=== PATIENT | female | born 1945 | race Caucasian/White ===

== ENCOUNTER 2016-05-12 10:32 | Inpatient (IN) | payer OTHER, MEDICARE ==
[~2016-05-12] VITALS: Ht 160 cm; Wt 97.9 kg
[~2016-05-12 10:32] MED LIST: ATENOLOL100 MG PO; CALCIUM + D SO1 EACH PO; IRON325 MG PO; KEFLEX500 MG PO; LISINOPRIL10 MG PO; PRAVASTATIN SOD20 MG PO; PRESERVISION T1 EACH PO; TYLENOL EXTRA500 MG PO; VITAMIN D2000 UNI1 PO
[2016-05-12 12:20] VITALS: BP 128/68
[2016-05-12 12:22] LABS: POINT-OF-CARE METER ID UU14174212
[2016-05-12 18:05] VITALS: BP 119/65
[2016-05-12 18:15] VITALS: BP 119/65
[2016-05-12 19:34] VITALS: BP 112/60
[2016-05-12 23:43] VITALS: BP 108/64
[2016-05-13 05:10] VITALS: BP 111/63
[2016-05-13 08:28] LABS: HEMATOCRIT 35.8 % (36.0-46.0); MCV 99.4 FL (83-99)
[2016-05-13 08:33] VITALS: BP 103/62
[2016-05-13 08:52] LABS: ANION GAP 6 MEQ/L (2-14); CHLORIDE 105 MEQ/L (99-109); GFR ESTIMATE (CALCULATED) 47 mL/min/; GLUCOSE 88 mg/dL (70-99); POTASSIUM 4.8 MEQ/L (3.7-5.4); SAMPLE HEMOLYSIS CHECK 0; SAMPLE ICTERIC CHECK 0; SAMPLE LIPEMIA CHECK 0; SODIUM 139 MEQ/L (136-147); UREA NITROGEN (BUN) 28 mg/dL (9-23)
[2016-05-13] MEDS ORDERED: OXYCODONE HCL5 MG PO (09:36)
[2016-05-13] MEDS ORDERED: CELECOXIB200 MG PO (09:36)
[2016-05-13] MEDS ORDERED: XARELTO10 MG PO (09:36)
== END 2016-05-13 14:50 | disposition home or self-care (01) | DRG 470 ==
LOC: 2SOUTH 10:32 → 3EAST 18:04
PROVIDERS: Orthopaedic Surgery
PROC: 0SRC0J9 Replacement of Right Knee Joint with Synthetic Substitute, Cemented, Open Approach (ICD-10-PCS; principal; 2016-05-12)
DX: M17.11 Unilateral primary osteoarthritis, right knee (principal); I10 Essential (primary) hypertension; E78.5 Hyperlipidemia, unspecified; Z68.37 Body mass index [BMI] 37.0-37.9, adult
CPT/HCPCS: 80048; 82948; 85014; 85018; 97530 GP; C1713; J0131; J0690; J1885; J2250; J2405; J2795; J7050; L1820

== ENCOUNTER 2017-10-04 21:22 | Inpatient (IN) | payer OTHER, MEDICARE ==
[~2017-10-04] VITALS: Ht 162.6 cm; Wt 101.5 kg
[~2017-10-04 21:22] MED LIST changes: +CALCIUM500 M4 PO; +CELECOXIB200 MG PO; +IRON325 M1 PO; +OXYCODONE HCL5 MG PO; +TOPROL XL100 MG PO; +VITAMIN D31000 UNIT PO; +XARELTO10 MG PO
[2017-10-05 12:22] VITALS: BP 99/57
[2017-10-05 20:04] VITALS: BP 101/53
[2017-10-06 00:15] VITALS: BP 110/55
[2017-10-06 04:07] VITALS: BP 101/51
[2017-10-06 06:28] LABS: HEMATOCRIT 34.9 % (36.0-46.0); HEMOGLOBIN 11.5 G/DL (11.9-15.5); MCV 98.3 FL (83-99)
[2017-10-06 06:47] LABS: CHLORIDE 108 MEQ/L (99-109); CREATININE 1.2 MG/DL (0.6-1.3); GFR ESTIMATE (CALCULATED) 47 mL/min/; GLUCOSE 133 mg/dL (70-99); POTASSIUM 5.3 MEQ/L (3.7-5.4); SODIUM 142 MEQ/L (136-147); UREA NITROGEN (BUN) 27 mg/dL (9-23)
[2017-10-06 08:17] VITALS: BP 106/58
[2017-10-06] MEDS ORDERED: GABAPENTIN100 MG PO (10:05)
[2017-10-06] MEDS ORDERED: ELIQUIS2.5 MG PO (10:05)
[2017-10-06] MEDS ORDERED: HYDROCODON-ACE1 EAC7 PO (10:05)
[2017-10-06 12:19] VITALS: BP 116/68
== END 2017-10-06 14:53 | DRG 470 ==
LOC: ENRESERV 21:22 → 2SOUTH 10-05 10:42 → 3WEST 10-05 18:01
PROVIDERS: Orthopaedic Surgery
PROC: 0SRD0J9 Replacement of Left Knee Joint with Synthetic Substitute, Cemented, Open Approach (ICD-10-PCS; principal; 2017-10-05)
DX: M17.12 Unilateral primary osteoarthritis, left knee (principal); Z96.651 Presence of right artificial knee joint; I45.10 Unspecified right bundle-branch block; R73.03 Prediabetes; E55.9 Vitamin D deficiency, unspecified; N18.3 Chronic kidney disease, stage 3 (moderate); I12.9 Hypertensive chronic kidney disease with stage 1 through stage 4 chronic kidney disease, or unspecified chronic kidney disease; N18.2 Chronic kidney disease, stage 2 (mild); E66.01 Morbid (severe) obesity due to excess calories; Z68.38 Body mass index [BMI] 38.0-38.9, adult
CPT/HCPCS: 80048; 85014; 85018; C1713; J0690; J1100; J1885; J2250; J2405; J2795; J3010; J7050